=== PATIENT | male | born 1970 | race Caucasian/White ===

== ENCOUNTER 2019-06-04 02:10 | Emergency (ER) | payer BC ==
--- OUTSIDE RECORDS SUMMARY | 2019-06-04 02:25 | XMS REPORT | Continuity of Care Document ---
:1970 External Reference #:[id number] Author Name Shannon Byrd MD Address [address] [place] [address] Problems Active Problems Provider Date Bipolar disorder Shannon Byrd MD Onset: 06/05/2011 Social History Type Date Description Comments Sex Unknown Tobacco Use Start: Unknown End: Former Cigarette Smoker Unknown Cigarette Use Quit - Age 44 Cigarette Use Pack Years - 30 ETOH Use Rarely consumes alcohol ETOH Use Occasionally consumes alcohol Recreational Drug Use Denies Drug Use Tobacco Use Start: Unknown End: Patient is a former smoker Unknown Smoking Status Reviewed: 05/11/19 Patient is a former smoker Exercise Type/Frequency Does gardening 3 times a week Exercise Type/Frequency Does housework 3 times a week Exercise Type/Frequency Walks 5 times a week Sun Exposure excessive amount of sun exposure Sun Exposure Uses sunscreen Seat Belt/Car Seat always Allergies, Adverse Reactions, Alerts Description No Known Drug Allergies Medications Active Medications SIG Qnty Indications Ordering Provider Date Vitamin D 1 by mouth E55.9 Shannon Byrd 03/20/2019 2000Unit every day MD Antonio Tablets Duloxetine HCL 1 by mouth 14caps F33.1 Shannon Byrd 03/17/2019 30mg Caps every day x [address] Arsalan Alvarez week Duloxetine HCL 1 by mouth 30caps F33.1 Shannon Byrd 03/17/2019 60mg Caps every day MD DR Arsalan Alvarez Medications Administered in Office Medication SIG Qnty Indications Ordering Provider Date Solumedrol Methyprenisolone Pete Flores MD 01/17/2001 Sodium Succinate Up To 40 MG Injection Solumedrol Methyprenisopaulone Shannon Byrd MD 12/04/1999 Sodium Succinate Up To 40 MG Injection Immunizations CPT Code Status Date Vaccine Lot # [id number] Given 12/03/2017 Tdap (Adacel) Ages 7 And Above Only [id number] Q2038 Given 03/06/2013 Fluzone Trivalent Immunization [id number] Q2038 Given 06/24/2012 Fluzone Trivalent Immunization [id number] Given 06/05/2011 Fluzone Trivalent Immunization [id number] 63076 Given 12/11/2010 Hepatitis B Vaccine Adult Dosage [id number] 73814 Given 07/10/2010 Hepatitis B Vaccine Adult Dosage [id number] 47321 Given 06/07/2010 Hepatitis B Vaccine Adult Dosage [id number] 86366 Given 03/04/2009 Afluria Or Fluvirin Flu Vac Intramuscular [id number] 13322 Given 05/26/2007 Afluria Or Fluvirin Flu Vac Intramuscular [id number] 26932 Given 12/14/2004 Hepatitis B Vac Adolescent 2 Dose Schedule 23397 Given 12/14/2004 Immunization Td 7 Yrs Or Older Vital Signs Date Vital Result Comment 05/11/2019 3:18pm Weight 222.00 lb Heart Rate 92 /min BP Systolic 114 mmHg BP Diastolic 68 mmHg 03/17/2019 8:32am Body Temperature 98.1 F Weight 217.00 lb Heart Rate 76 /min BP Systolic 130 mmHg BP Diastolic 80 mmHg Height 68 inches 5'8" BMI (Body Mass Index) 33.0 kg/m2 Results Test Acquired Date Facility Test Result H/L Range Note Bree Screen With 03/17/2019 [facility] Bree Screen NEGATIVE Negative 1 [facility] dsDNA IgG 0.60 IU/mL 0.00-9.00 2 Lyme Igm/Igg AB -RL 03/17/2019 [facility] Lyme Igm/Igg AB @ NEGATIVE (Neg) 3 Babesia M AB Igg Igm -RL 03/17/2019 [facility] Babesia Microti Igg < 1:16 4 Babesia Microti Igm <1:20 5 R Rickettsii AB G/M -RL 03/17/2019 [facility] R Rickettsii AB Igg <1:64 6 R Rickettsii AB Igm <1:64 7 CBC with Auto Diff-[facility]cmg 03/17/2019 [facility] WBC 6.1 K/uL 4.1-11.0 RBC 5.22 M/uL 4.60-6.10 Hemoglobin 16.5 gm/dL 13.5-18.0 Hematocrit 48.7 % 41.0-53.0 MCV 93.3 fL 80.0-97.0 MCH 31.6 pg 27.0-32.0 MCHC 33.9 g/dL 32.0-36.0 RDW 13.8 % 11.5-14.5 PLT Count 259 K/ul 140-400 MPV 9.1 FL 7.1-10.7 Neutrophil 59.3 % 35.0-75.0 Lymphocyte 27.6 % 16.0-52.0 Monocyte 10.2 % High 2.0-10.0 Eosinophil 2.0 % 0.0-5.0 Basophil 0.9 % 0.0-4.0 Abs Neutrophils 3.6 K/uL 2.1-8.0 Abs Lymphocytes 1.7 K/uL 0.8-5.5 Abs Monocytes 0.6 K/uL 0.1-1.0 Abs Eosinophils 0.1 K/uL 0.0-0.5 Abs Basophils 0.1 K/uL 0.0-0.3 Comprehensive Met Panel-[facility] 03/17/2019 [facility] Sodium 140 mmol/L 135- 146 8 Potassium 4.5 mmol/L 3.5-5.2 Chloride# 101 mmol/L 97-110 9 Carbon Dioxide 29 mmol/L 24-34 Calcium 10.0 mg/dL 8.5-10.5 10 Glucose 82 mg/dL 70-105 BUN 18 mg/dL 6-26 Creatinine 0.9 mg/dL 0.5-1.4 Total Protein 6.9 g/dL 6.0-8.0 Albumin 4.8 g/dL 3.6-4.9 Globulin 2.1 g/dL 2.0-3.5 A/G Ratio 2.3 Ratio High 1.0-2.2 Total Bilirubin 1.4 mg/dL High 0.1-1.3 Alkaline Phosphatase 86 U/L 24-140 Alt 51 U/L High 3-42 Ast 27 U/L 8-42 Anion Gap 10 mmol/L 5-15 11 Female Egfr 75 >60 12 Male Egfr 99 >60 13 Laboratory test finding 03/17/2019 [facility] CRP (C-Reactive) 0.07 mg/dL 0.00-0.75 Esr 3 mm/hr 0-15 CCP Antibody Igg Negative Negative Hepatitis C Virus Antibody NON REACTIVE S/CORatio(Yehuda Non Reactive 14 Rheumatoid Factor-[facility] <10.0 IU/mL 0.0-10.0 TSH 0.92 uIU/mL 0.35-4.94 E Chaffeensis Abs 03/17/2019 [facility] E Chaffeensis Igg <1:64 15 E Chaffeensis Igm < 1:16 16 Lipid 03/17/2019 [facility] Cholesterol 282 mg/dL High 50-199 Triglycerides 213 mg/dL High 30-200 HDL 49 mg/dL 29-71 17 Chol/ HDL Ratio 5.8 ratio 4.0-6.7 VLDL 43 mg/dL High 2-29 LDL (Calc) 191 mg/dL High 20-99 18 Laboratory test 03/17/2019 [facility] Vitamin D 25 28 ng/mL Low 30-100 19 finding Hydroxy Laboratory test 03/17/2019 [facility] Anti-Streptolysn O <200 IU/mL (0-200 ) 20 finding Laboratory test 03/17/2019 [facility] Hlab27 Negative 21 finding 1 This sample is drawn by:NB. 2 Interpretation: <0.5 -9 IU/ml Negative 10-15 IU/ml Equivocal >15.0 IU/ml Positive 3 A Negative serologic test for Lyme Disease indicates no serologic evidence of infection with B burgdorferi at the time this specimen was collected. A repeat specimen should be collected in 2 to 4 weeks if clinically indicated. Unless otherwise specified, testing performed by [facility], [place] [address] 4 < 1:16 Reference range: < 1:16 INTERPRETIVE INFORMATION: Babesia microti Antibody, IgG Less than 1:16 ........ Negative - No significant level of detectable Babesia IgG antibodies. 1:16 .................. Equivocal - Repeat testing in 10-14 days may be helpful. Greater than 1:16 ..... Positive - IgG antibodies to Babesia detected which may indicate a current or previous infection. Test developed and characteristics determined by [facility]. See Compliance Statement A: [email or web address] 5 <1:20 Reference range: <1:20 INTERPRETIVE INFORMATION: Babesia microti Antibody, IgM Less than 1:20 ........ Negative - No significant level of detectable Babesia IgM antibodies. 1:20 .................. Equivocal - Repeat testing in 10-14 days may be helpful. Greater than 1:20 ..... Positive - IgM antibodies to Babesia detected which may indicate a current or recent infection. Test developed and characteristics determined by [facility]. See Compliance Statement A: [email or web address] Performed by [facility], [address] [place] [id number] [email or web address], Asael Platt MD, Lab. Director Unless otherwise specified, testing performed by [facility] [address] [place] [id number] 6 <1:64 Reference range: <1:64 INTERPRETIVE INFORMATION: Rickettsia rickettsii (Jaspreet Mtn. Spotted Fever) Ab, IgG Less than 1:64 ....... Negative - No significant level of IgG antibody detected. 1:64 - 1:128 ......... Low Positive - Presence of IgG Antibody detected, suggestive of current or past infection. 1:256 or greater ..... Positive - Presence of IgG antibody detected, suggestive of current or past infection. Antibody reactivity to Rickettsia rickettsii antigen should be considered Spotted Fever group reactive. Other organisms within the group include R. akari, R. conorrii, R. australis and R. sibirica. Seroconversion, a fourfold or greater rise in antibody titer, between acute and convalescent sera is considered strong evidence of recent infection. Acute-phase specimens are collected during the first week of illness and convalescent-phase samples are generally obtained 2-4 weeks after resolution of illness. Ideally these samples should be tested simultaneously at the same facility. If the sample submitted was collected during the acute-phase of illness, submit a marked convalescent sample within 25 days for paired testing. 7 <1:64 Reference range: <1:64 INTERPRETIVE INFORMATION: Rickettsia rickettsii (Jaspreet Mtn. Spotted Fever) Ab, IgM Less than 1:64 ....... Negative - No significant level of IgM antibody detected. 1:64 or greater ...... Positive - Presence of IgM antibody detected, which may indicate a current or recent infection; however, low levels of IgM antibodies may occasionally persist for more than 12 months post-infection. Antibody reactivity to Rickettsia rickettsii antigen should be considered Spotted Fever group reactive. Other organisms within the group include R. akari, R. conorrii, R. australis and R. sibirica. Seroconversion, a fourfold or greater rise in antibody titer, between acute and convalescent sera is considered strong evidence of recent infection. Acute-phase specimens are collected during the first week of illness and convalescent-phase samples are generally obtained 2-4 weeks after resolution of illness. Ideally these samples should be tested simultaneously at the same facility. If the sample submitted was collected during the acute-phase of illness, submit a marked convalescent sample within 25 days for paired testing. The CDC does not use IgM results for routine diagnostic testing of [place] Spotted Fever, as the response may not be specific for the agent (resulting in false positives) and the IgM response may be persistent from past infection. Performed by [facility], [address] [place] [id number] [email or web address], Asael Platt MD, Lab. Director Unless otherwise specified, testing performed by [facility] [address] [place] [address] 8 Updated reference range on new analyzer 9 Updated reference range on new analyzer 10 Updated reference range 10-15-2018 11 Updated Reference Range 12 Concerning GFR Guidelines for Americans: Normal function or mild renal disease, if clinically at risk: >/= 60 mL/min Moderately decreased: 30-59 Severely decreased: 15-29 Renal failure: <15 There is reduced accuracy above 60ml/min/1.73 m squared, but the numeric value may be clinically useful in the near 60 range 13 Concerning GFR Guidelines: Normal function or mild renal disease, if clinically at risk: >/= 60 mL/min Moderately decreased: 30-59 Severely decreased: 15-29 Renal failure: <15 There is reduced accuracy above 60ml/min/1.73 m squared, but the numeric value may be clinically useful in the near 60 range Glomerular Filtration Rate (GFR) is estimated based on the CKD-EPI equation, which assumes a steady state for creatinine as recommended by the National Kidney Disease Education Program in conjunction with the National Institutes of Health and the National Kidney Foundation. Clinical conditions in which it may be necessary to measure GFR by using clearance methods include extremes of age and body size, severe malnutrition or obesity, diseases of skeletal muscle, paraplegia or quadriplegia, vegetarian diet, rapidly changing kidney function, and calculation of the dose of potentially toxic drugs that are excreted by the kidneys. 14 S/CO Ratio >/=1.0 is REACTIVE. S/CO <5.0 is Low Reactive. S/CO >/= 5.0 is High Reactive. Effective Feb 08, 2017 all anti-HCV reactive samples are sent for quantitative PCR confirmation. 15 <1:64 Reference range: <1:64 INTERPRETIVE INFORMATION: Ehrlichia Chaffeensis IgG Ab Less than 1:64 ....... Negative: No significant level of Ehrlichia chaffeensis IgG antibody detected. 1:64-1:128 ........... Equivocal: Questionable presence of Ehrlichia chaffeensis IgG antibody detected. Repeat testing in 10-14 days may be helpful. 1:256 or greater ..... Positive: Presence of IgG antibody to Ehrlichia chaffeensis detected, suggestive of current or past infection. Seroconversion between acute and convalescent sera is considered strong evidence of recent infection. The best evidence for infection is a significant change (fourfold difference in titer) on two appropriately timed specimens, where both tests are done in the same laboratory at the same time. Test developed and characteristics determined by [facility]. See Compliance Statement B: [email or web address] 16 < 1:16 Reference range: < 1:16 INTERPRETIVE INFORMATION: Ehrlichia Chaffeensis IgM Ab Less than 1:16 ....... Negative - No significant level of Ehrlichia chaffeensis IgM antibody detected. 1:16 or greater ...... Positive - Presence of IgM antibody to Ehrlichia chaffeensis detected, suggestive of current or recent infection. While the presence of IgM antibodies suggest current or recent infection, low levels of IgM antibodies may occasionally persist for more than 12 months post-infection. A single IgM result should be interpreted with caution. Test developed and characteristics determined by [facility]. See Compliance Statement B: [email or web address] Performed by [facility], [address] [place] [id number] [email or web address], Asael Platt MD, Lab. Director Unless otherwise specified, testing performed by [facility] [address] [place], [place] [address], [place] [address] 17 Per NCEP ATP III Guidelines: Results lower than 40 mg/dL are suggestive of increased risk for coronary artery disease. Results > or = to 60 mg/dL are considered a negative risk factor. 18 Per NCEP ATP III Guidelines: Normal Population <130 Patients with medical conditions: CHD/DM Optimal: <100 Borderline high: 130-159 High: 160-189 Very high: >189 19 Clinical Guidelines for recommended serum 25(OH)Vitamin D Deficient at less than 20 ng/mL Insufficient at 20 to <30 ng/mL Sufficient at 30-100 ng/mL Toxicity at greater than 100 ng/mL 20 Unless otherwise specified, testing performed by [facility] [place] [address] [address] 21 Negative Reference range: NEGATIVE PERFORMED AT [facility], [address] [place] [id number] Unless otherwise specified, testing performed by [facility] [place] [address] Procedures Description No Information Available Medical Devices Description No Information Available Encounters Type Date Location Provider Dx Diagnosis Office Visit 03/17/2019 [facility] Shannon Byrd E66.9 Obesity, unspecified 8:30a MD Antonio M25.50 Pain in unspecified joint R53.83 Other fatigue F41.1 Generalized anxiety disorder J98.4 Other disorders of lung E78.2 Mixed hyperlipidemia K76.9 Liver disease, unspecified E55.9 Vitamin D deficiency, unspecified F33.1 Major depressive disorder, recurrent, moderate Z68.33 Body mass index (BMI) 33.0-33.9, adult Assessments Date Code Description Provider 05/11/2019 E78.2 Mixed hyperlipidemia Shannon Byrd MD 05/11/2019 E55.9 Vitamin D deficiency, unspecified Shannon Byrd MD 05/11/2019 J98.4 Other disorders of lung Shannon Byrd MD 05/11/2019 F33.1 Major depressive disorder, recurrent, Shannon Byrd MD moderate 05/11/2019 R53.83 Other fatigue Shannon Byrd MD 05/11/2019 M25.559 Pain in unspecified hip Shannon Byrd MD 03/17/2019 E66.9 Obesity, unspecified Shannon Byrd MD 03/17/2019 M25.50 Pain in unspecified joint Shannon Byrd MD 03/17/2019 R53.83 Other fatigue Shannon Byrd MD 03/17/2019 F41.1 Generalized anxiety disorder Shannon Byrd MD 03/17/2019 J98.4 Other disorders of lung Shannon Byrd MD 03/17/2019 E78.2 Mixed hyperlipidemia Shannon Byrd MD 03/17/2019 K76.9 Liver disease, unspecified Shannon Byrd MD 03/17/2019 E55.9 Vitamin D deficiency, unspecified Shannon Byrd MD 03/17/2019 F33.1 Major depressive disorder, recurrent, Shannon Byrd MD moderate 03/17/2019 Z68.33 Body mass index (BMI) 33.0-33.9, adult Shannon Byrd MD 03/17/2019 M25.50 Pain in unspecified joint [facility] 03/17/2019 E55.9 Vitamin D deficiency, unspecified [facility] 03/17/2019 M25.50 Pain in unspecified joint [facility] Plan of Treatment Future Appointment(s):07/13/2019 8:45 am - Shannon Byrd MD at [facility] - Shannon Byrd MDE78.2 Mixed hyperlipidemiaFollow up:2 mos FBWBE55.9 Vitamin D deficiency, pnczvkoveoqM92.4 Other disorders of lungF33.1 Major depressive disorder, recurrent, qdrcgctbN60.83 Other icbjzyvS37.559 Pain in unspecified hipReferral:Shadia Gomez DR, Surgery,Ortho Adult Recon Functional Status Description No Information Available Mental Status Description No Information Available Referrals Refer to Reason for Referral Status Appt Date Shadia Gomez DR BILATERAL HIP PAIN ? verify if does xrays in Scheduled her office? If so-cancle xray order she can do there-if not appt after xrays 05/11-SCHEDULED WHILE IN OFFICE SO IS DEF AWARE[place] [address] [phone]
--- OUTSIDE RECORDS SUMMARY | 2019-06-04 02:25 | XMS REPORT | Continuity of Care Document ---
:1970 External Reference #:[id number] Author Name Shadia Gomez M.D. (transmitted by agent of provider Poppy Emery) Address [address] [place] [address] Care Team Providers Name Role Phone Shannon Byrd MD - Internal Care Team Information Software Sales Manager Medicine Problems Active Problems Provider Date Trochanteric bursitis Shadia Gomez M.D. Onset: 05/29/2019 Localized, primary osteoarthritis of the pelvic Shadia Gomez M.D. Onset: region and thigh Social History Type Date Description Comments Sex Unknown ETOH Use Occasionally consumes alcohol Tobacco Use Start: Unknown End: Patient is a former smoker 4 years ago Unknown Smoking Status Reviewed: 05/29/19 Patient is a former smoker 4 years ago Exercise Type/Frequency Exercises sporadically Allergies, Adverse Reactions, Alerts Description No Known Drug Allergies Medications Active Medications SIG Qnty Indications Ordering Provider Date Duloxetine HCL Shannon Byrd MD 30mg Caps Part Immunizations Description No Information Available Vital Signs Date Vital Result Comment 05/29/2019 3:20pm Height 68 inches 5'8" Weight 210.00 lb Heart Rate 81 /min BP Systolic 132 mmHg BP Diastolic 88 mmHg Respiratory Rate 18 /min Body Temperature 98.8 F Pain Level 4 BMI (Body Mass Index) 31.9 kg/m2 Results Description No Information Available Procedures Description No Information Available Medical Devices Description No Information Available Encounters Description No Information Available Assessments Date Code Description Provider 05/29/2019 M25.552 Pain in left hip Shadia Gomez M.D. 05/29/2019 M25.551 Pain in right hip Shadia Gomez M.D. 05/29/2019 M16.11 Unilateral primary osteoarthritis, right hip Shadia Gomez M.D. 05/29/2019 M16.12 Unilateral primary osteoarthritis, left hip Shadia Gomez M.D. 05/29/2019 M70.62 Trochanteric bursitis, left hip Shadia Gomez M.D. 05/29/2019 M70.61 Trochanteric bursitis, right hip Shadia Gomez M.D. Plan of Treatment 05/29/2019 - Shadia Gomez M.D.M25.552 Pain in left hipFollow up:Follow up: As gcquifQ23.551 Pain in right hipM16.11 Unilateral primary osteoarthritis, right hipM16.12 Unilateral primary osteoarthritis, left hipM70.62 Trochanteric bursitis, left hipM70.61 Trochanteric bursitis, right hip Functional Status Description No Information Available Mental Status Description No Information Available Referrals Description No Information Available
--- NOTE | 2019-06-04 02:56 | ED ---
Upper Extremity Pain - HPI Summary HPI Summary: Patient is a 49 y/o M presenting to [facility] with complaints of LUE pain. He states that he awoke approximately 1 hour ago with the pain. He characterizes the pain as an ache and a knot. Pain is located at his bicep area and radiates down his arm. He denies previous similar episodes of Sx. On triage, pain is rated 6/10, keeping his arm above his head alleviates Sx. Tingling and numbness are denied. However, patient does state that the arm feels weak and that he cannot universal banker as strongly compared to his baseline. CP, SOB, nausea, diaphoresis are denied. No changes to daily activity noted. He states that he has not taken any medications ROD WELDER. NKDA reported. He denies PMHx or daily medications. He denies PSHx. Patient is a former smoker, reports occasional alcohol usage, and denies substance usage. FMHx of cardiac disease on father's side. Patient notes that his cholesterol is slightly elevated. Home medications and allergies are reviewed. - History of Current Complaint Chief Complaint: EDExtremityUpper Stated Complaint: PAIN IN ARM PER PT Time Seen by Provider: 06/04/19 02:34 Hx Obtained From: Patient Onset/Duration: Started Hours Ago, Still Present Timing: Constant, Lasting Hours Severity Currently: Moderate Pain Location: Arm - left arm Character: Aching - knot Aggravating Factor(s): Nothing Alleviating Factor(s): Elevation Associated Signs & Symptoms: Positive: Weakness. Negative: Numbness/Tingling, Chest Pain, SOB, Diaphoresis, Nausea - Allergies/Home Medications Allergies/Adverse Reactions: Allergies Allergy/AdvReac Type Severity Reaction Status Date / Time No Known Allergies Allergy Verified 05/31/12 12:03 Home Medications: Home Medications DULoxetine DR CHAPA* [Cymbalta CAP*] 60 mg PO DAILY 06/04/19 [History Confirmed ] PMH/Surg Hx/FS Hx/Imm Hx Musculoskeletal History: Denies: Hx Scoliosis Neurological History: Denies: Hx Headaches, Other Neuro Impairments/Disorders Infectious Disease History: No Infectious Disease History: Denies: Traveled Outside the [place] in Last 30 Days - Family History Known Family History: Positive: Cardiac Disease - Social History Alcohol Use: Occasionally Substance Use Type: Reports: None Smoking Status (MU): Former Smoker Review of Systems - ROS Summary Review of Systems Summary: Home Medications Medication Instructions Recorded Confirmed Type DULoxetine DR CHAPA* [Cymbalta CAP*] 60 mg PO DAILY 06/04/19 06/04/19 History Negative: Skin Diaphoresis Negative: Chest Pain Negative: Shortness Of Breath Negative: Nausea Musculoskeletal: Other - positive - LUE pain Positive: Weakness. Negative: Paresthesia, Numbness All Other Systems Reviewed And Are Negative: Yes Physical Exam - Summary Physical Exam Summary: General: Well-developed, Well-nourished male. No acute distress. HEENT: Normocephalic, Atraumatic. Eyes: Conjuctiva normal, PERRL. Oropharynx: Clear, mucous membranes moist, (-) exudates. Neck: Soft, FROM, (-) lymphadenopathy, (-) thyromegaly, (-) JVD. Cardiovascular: Normal sinus rhythm, (-) murmur. Lungs: Clear to auscultation bilaterally (-) wheezes, (-) rales, (-) rhonchi. Abdomen: Soft, non-tender, non-distended, (-) organomegaly, normal bowel sounds. Back: (-) CVA tenderness Extremities: No edema. Slightly decreased universal banker strength of LUE noted. Normal pulses, sensation, cap refill, and FROM. Skin: Warm, dry, (-) rash. Neuro: Alert and oriented x3; slightly decreased universal banker strength of LUE noted. Psychiatric: Mildly anxious appearing. Triage Information Reviewed: Yes Vital Signs On Initial Exam: Initial Vitals Temp Pulse Resp BP Pulse Ox 97.2 F 82 16 162/102 96 06/04/19 02:12 06/04/19 02:12 06/04/19 02:12 06/04/19 02:12 06/04/19 02:12 Vital Signs Reviewed: Yes Procedures - Sedation Patient Received Moderate/Deep Sedation with Procedure: No Diagnostics - Vital Signs Vital Signs Temp Pulse Resp BP Pulse Ox 06/04/19 02:24 77 147/93 95 06/04/19 02:23 81 95 06/04/19 02:12 97.2 F 82 16 162/102 96 - Laboratory Result Diagrams: 06/04/19 03:30 06/04/19 03:30 Lab Statement: Any lab studies that have been ordered have been reviewed, and results considered in the medical decision making process. - Radiology CXR Radiology Interpretation Completed By: ED Physician Summary of Radiographic Findings: CXR shows No infiltrate. No pleural effusion, pending official report. - EKG 0328 Cardiac Rate: NL - RATE OF 75 BPM EKG Rhythm: Sinus Rhythm Summary of EKG Findings: EKG showed NSR with rate of 75 BPM, no STEMI. EKG was reviewed and interpreted by ED physician. Course/Dx - Course Course Of Treatment: 49-year-old male presents from home with left arm pain. Patient states he awoke from sleep and had achy pain in his left bicep. He states the pain goes down into his hand. Never had anything like this before. Denies any change in activity yesterday. He states the left hand does feel slightly weaker than the right hand. He denies any neck pain currently but he does have a history of having muscular neck issues. Denies any chest pain or shortness of breath. Does have family history of coronary artery disease. Patient does have mild strength changes on the left hand. Normal sensation, pulses, capillary refill. Cardiac workup with no significant abnormality. Advised patient to use ice on the neck. Ibuprofen or Aleve. Follow-up with PCP and discuss stress test. Follow-up sooner for any worsening symptoms. - Diagnoses Provider Diagnoses: Left arm pain Discharge ED - Sign-Out/Discharge Documenting (check all that apply): Patient Departure - discharge - Discharge Plan Condition: Stable Disposition: HOME Patient Education Materials: Arm Pain (ED) Referrals: Shannon Ponce MD [Primary Care Provider] - 3 Days Additional Instructions: PLEASE RETURN TO ED FOR ANY NEW OR WORSENING SYMPTOMS. PLEASE FOLLOW UP WITH YOUR PRIMARY CARE PHYSICIAN WITHIN THREE DAYS. - Billing Disposition and Condition Condition: STABLE Disposition: Home - Attestation Statements Document Initiated by Scribe: Yes Documenting Scribe: PERFECTO PRITCHARD Provider For Whom Joe is Documenting (Include Credential): ANDI BESS MD Scribe Attestation: PERFECTO Ya, scribed for ANDI BESS MD on 06/04/19 at 0448. Scribe Documentation Reviewed: Yes Provider Attestation: The documentation as recorded by the PERFECTO raines accurately reflects the service I personally performed and the decisions made by me, ANDI BESS MD Status of Scribe Document: Viewed
[2019-06-04 03:37] LABS: ABS Basophils 0.1 10^3/ul (0-0.2); ABS Eosinophils 0.2 10^3/ul (0-0.6); ABS Lymphocytes 1.6 10^3/ul (1.0-4.8); ABS Monocytes 0.7 10^3/ul (0-0.8); ABS Neutrophils 3.5 10^3/ul (1.5-7.7); Eosinophil % 3.1 %; Hematocrit 44 % (42-52); Hemoglobin 15.6 g/dL (14.0-18.0); Lymphocyte % 26.6 %; Mean Corpuscular HGB Conc 35 g/dL (31-36); Mean Corpuscular Hemoglobin 32 pg (27-31); Mean Corpuscular Volume 90 fL (80-94); Mean Platelet Volume 8.6 fL (7.4-10.4); Nucleated Red Blood Cells % 0.7; Platelet Count 239 10^3/uL (150-450); Red Blood Count 4.89 10^6 /uL (4.18-5.48); Red Cell Distribution Width 14 % (10-15)
[2019-06-04 03:55] LABS: Albumin 4.4 g/dL (3.2-5.2); Albumin/Globulin Ratio 1.9 (1-3); Calcium 9.4 mg/dL (8.6-10.3); EGFR African American 101.2 (>60); EGFR Non-African American 83.6 (>60); Globulin 2.3 g/dL (2-4); Potassium 3.8 mmol/L (3.5-5.0); Total Protein 6.7 g/dL (6.4-8.9)
[2019-06-04 04:23] VITALS: BP 140/90
== END 2019-06-04 04:23 | disposition home or self-care (01) ==
LOC: ED 02:10
DX: M79.602 Pain in left arm (principal); Z87.891 Personal history of nicotine dependence; Z79.899 Other long term (current) drug therapy
CPT/HCPCS: 36415; 71045; 80053; 83605; 84484; 85025; 93005; 99282

== ENCOUNTER 2019-06-11 10:10 | Emergency (ER) | payer BC ==
[2019-06-11 10:17] VITALS: BP 133/92
--- NOTE | 2019-06-11 11:14 | UC ---
Eye Complaint HPI - HPI Summary HPI Summary: 49 yo with swollen itchy and red left eye x 3 days. Lower lid is tender and irritated. - History of Current Complaint Chief Complaint: UCEye Stated Complaint: EYE SWELLING Time Seen by Provider: 06/11/19 11:06 Hx Obtained From: Patient Onset/Duration: Gradual Onset, Lasting Days - 3 Timing: Constant Severity Initially: Mild Severity Currently: Mild Pain Intensity: 1 Location of Injury: Eye Lid (lower) - left Aggravating Factor(s): Blinking Alleviating Factor(s): Nothing Associated Signs And Symptoms: Negative: Photophobia, Drainage (Clear), Vision Impairment Bilateral - Allergies/Home Medications Allergies/Adverse Reactions: Allergies Allergy/AdvReac Type Severity Reaction Status Date / Time No Known Allergies Allergy Verified 06/11/19 10:17 PMH/Surg Hx/FS Hx/Imm Hx Previously Healthy: Yes - Surgical History Surgical History: None - Family History Known Family History: Positive: Cardiac Disease - Social History Occupation: Employed Full-time Lives: With Family Alcohol Use: Occasionally Substance Use Type: None Smoking Status (MU): Former Smoker Review of Systems All Other Systems Reviewed And Are Negative: Yes Constitutional: Positive: Negative Skin: Positive: Negative Eyes: Positive: Other - left lower lid swelling ENT: Positive: Negative. Negative: Sore Throat, Sinus Congestion Respiratory: Positive: Negative Cardiovascular: Positive: Negative Gastrointestinal: Positive: Negative Genitourinary: Positive: Negative Motor: Positive: Negative Neurovascular: Positive: Negative Musculoskeletal: Positive: Negative Neurological: Positive: Negative. Negative: Headache Psychological: Positive: Negative Is Patient Immunocompromised?: No Physical Exam Triage Information Reviewed: Yes Appearance: Well-Appearing, No Pain Distress Vital Signs: Initial Vital Signs Temp 98.7 F 06/11/19 10:14 Pulse 81 06/11/19 10:14 Resp 18 06/11/19 10:14 BP 133/92 06/11/19 10:14 Pulse Ox 99 06/11/19 10:14 Eyes: Positive: Conjunctiva Clear, Other: - left lower eye lid with mild erythema and swelling. + chalazion laterally ENT: Positive: Pharynx normal, TMs normal Neck: Positive: Supple, Nontender, No Lymphadenopathy Respiratory: Positive: Lungs clear, Normal breath sounds Cardiovascular: Positive: RRR, No Murmur Musculoskeletal Exam: Normal Neurological Exam: Normal Psychological Exam: Normal Skin Exam: Normal Eye Complaint Course/Dx - Course Course Of Treatment: topical ointment and compressing, ophthalmological referral if it does not resolve. (requests Dr. Pak who sees his .) - Differential Dx/Diagnosis Differential Diagnosis/HQI/PQRI: Conjunctivitis, Other - stye, chlazion Provider Diagnosis: Chalazion left lower eyelid Discharge ED - Sign-Out/Discharge Documenting (check all that apply): Patient Departure All imaging exams completed and their final reports reviewed: No Studies - Discharge Plan Condition: Good Disposition: HOME Prescriptions: Erythromycin OPTH OINT* [Erythromycin 0.5% OPTH OINT*] 1 applic LEFT EYE TID #1 ophth.oint Patient Education Materials: Chalazion (ED) Referrals: Shannon Ponce MD [Primary Care Provider] - Dimitri Pak MD [Medical Doctor] - Additional Instructions: As discussed, compress your left eye for 5 minutes three or four times per day. Apply the antibiotic ointment to the left lower lid 2 or 3 times per day. Follow up with Dr. Pak if the swelling persists. - Billing Disposition and Condition Condition: GOOD Disposition: Home
== END 2019-06-11 11:26 | disposition home or self-care (01) ==
LOC: UCEAST 10:10
DX: H00.15 Chalazion left lower eyelid (principal); Z87.891 Personal history of nicotine dependence
CPT/HCPCS: 99212; G0463